=== PATIENT | female | born 2005 | race Caucasian/White ===

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

== ENCOUNTER 2023-01-08 15:14 | Emergency (ER) | payer OTHER ==
[~2023-01-08] VITALS: Ht 162.6 cm; Wt 72.1 kg
[2023-01-08 18:59] LABS: GC DNA AMPLIFICATION NEGATIVE (NEGATIVE)
[2023-01-08 19:30] LABS: BASO # 0.1 10^3/uL (0.0-0.2); BASO % 0.6 % (0.0-1.0); EOS # 0.2 10^3/uL (0.0-0.5); EOS % 1.9 % (0.0-3.0); HEMATOCRIT 40.1 % (36.0-47.0); HEMOGLOBIN 13.1 g/dl (12.0-15.5); LYMPH # 3.2 10^3/uL (1.5-5.0); LYMPH % 40.9 % (24.0-44.0); MEAN CORPUSCULAR HGB CONC 32.7 g/dl (32.0-36.5); MEAN CORPUSCULAR VOLUME 88.9 fl (80.0-96.0); MONO # 0.3 10^3/uL (0.0-0.8); MONO % 4.3 % (2.0-8.0); NEUTROPHILS # 4.1 10^3/uL (1.5-8.5); PLATELET COUNT, AUTOMATED 250 10^3/uL (150-450); RED BLOOD COUNT 4.51 10^6/uL (4.00-5.40); WHITE BLOOD COUNT 7.9 10^3/uL (4.0-10.0)
[2023-01-08 19:51] LABS: LIPASE 36 U/L (12-53)
[2023-01-08 19:53] LABS: ALBUMIN 4.1 G/DL (3.2-5.2); ALKALINE PHOSPHATASE 84 U/L (46-116); ALT/SGPT 64 U/L (7.0-40); AST/SGOT 19 U/L (<34); BILIRUBIN,DIRECT 0.1 MG/DL (<0.4); BILIRUBIN,TOTAL 0.3 MG/DL (0.3-1.2); BLOOD UREA NITROGEN 16 MG/DL (9-23); CALCIUM LEVEL 9.5 MG/DL (8.5-10.1); CARBON DIOXIDE LEVEL 28 MMOL/L (20-31); CHLORIDE LEVEL 105 MMOL/L (98-107); CREATININE FOR GFR 0.59 MG/DL (0.55-1.30); GLUCOSE, FASTING 81 MG/DL (60-100); POTASSIUM SERUM 3.9 MMOL/L (3.5-5.1); SODIUM LEVEL 139 MMOL/L (136-145); TOTAL PROTEIN 7.5 G/DL (5.7-8.2)
[2023-01-08 20:25] VITALS: BP 141/89; TEMP 97.8; O2SAT 99
== END 2023-01-08 20:29 | disposition home or self-care (01) ==
LOC: M ED 15:14
DX: R10.2 Pelvic and perineal pain (principal); N92.6 Irregular menstruation, unspecified

== ENCOUNTER → 2023-03-16 | Outpatient (CLI) | payer OTHER | LOC: M RAD 07:04 | PROVIDERS: ATTEND Orthopaedic Surgery | DX: M67.431 Ganglion, right wrist (principal) ==

== ENCOUNTER 2023-04-23 11:34 | Emergency (ER) | payer OTHER ==
[~2023-04-23] VITALS: Ht 162.6 cm; Wt 74.5 kg
[~2023-04-23 11:34] MED LIST: ONDA4TAB6 PO
[2023-04-23 14:25] LABS: BASO % 0.5 % (0.0-1.0); EOS # 0.1 10^3/uL (0.0-0.5); EOS % 1.7 % (0.0-3.0); HEMATOCRIT 41.9 % (36.0-47.0); LYMPH # 3.2 10^3/uL (1.5-5.0); LYMPH % 42.3 % (24.0-44.0); MEAN CORPUSCULAR HEMOGLOBIN 29.5 pg (27.0-33.0); MEAN CORPUSCULAR HGB CONC 33.4 g/dl (32.0-36.5); MEAN CORPUSCULAR VOLUME 88.2 fl (80.0-96.0); MONO # 0.3 10^3/uL (0.0-0.8); MONO % 3.8 % (2.0-8.0); NEUTROPHILS # 3.9 10^3/uL (1.5-8.5); NEUTROPHILS % 51.4 % (36.0-66.0); PLATELET COUNT, AUTOMATED 259 10^3/uL (150-450); RED BLOOD COUNT 4.75 10^6/uL (4.00-5.40); WHITE BLOOD COUNT 7.7 10^3/uL (4.0-10.0)
[2023-04-23 14:54] LABS: LIPASE 38 U/L (12-53)
[2023-04-23 14:56] LABS: ALBUMIN 4.2 G/DL (3.2-5.2); ALKALINE PHOSPHATASE 81 U/L (46-116); ALT/SGPT 19 U/L (7.0-40); AST/SGOT 15 U/L (<34); BILIRUBIN,DIRECT 0.2 MG/DL (<0.4); BILIRUBIN,TOTAL 0.5 MG/DL (0.3-1.2); BLOOD UREA NITROGEN 10 MG/DL (9-23); CALCIUM LEVEL 9.9 MG/DL (8.5-10.1); CARBON DIOXIDE LEVEL 26 MMOL/L (20-31); CHLORIDE LEVEL 107 MMOL/L (98-107); CREATININE FOR GFR 0.66 MG/DL (0.55-1.30); GLUCOSE, FASTING 74 MG/DL (60-100); POTASSIUM SERUM 3.9 MMOL/L (3.5-5.1); SODIUM LEVEL 141 MMOL/L (136-145); TOTAL PROTEIN 7.6 G/DL (5.7-8.2)
[2023-04-23 15:07] LABS: HCG, SERUM QUALITATIVE NEGATIVE (NEGATIVE)
[2023-04-23 19:13] LABS: CHLAMYDIA DNA AMPLIFICATION NEGATIVE (NEGATIVE); GC DNA AMPLIFICATION NEGATIVE (NEGATIVE)
[2023-04-23] MEDS ORDERED: CIPR-249 PO (19:28)
[2023-04-23 19:34] VITALS: BP 124/72; TEMP 97.8; O2SAT 100
== END 2023-04-23 19:35 | disposition home or self-care (01) ==
LOC: M ED 11:34
DX: N39.0 Urinary tract infection, site not specified (principal); N92.0 Excessive and frequent menstruation with regular cycle; Z79.2 Long term (current) use of antibiotics

== ENCOUNTER 2024-07-07 12:34 | Emergency (ER) | payer OTHER ==
[~2024-07-07] VITALS: Ht 162.6 cm; Wt 80.5 kg
[~2024-07-07 12:34] MED LIST changes: +CIPR-249 PO; +ONDA-282 PO; -ONDA4TAB6 PO
[2024-07-07 14:07] LABS: BASO # 0.1 10^3/uL (0.0-0.2); BASO % 0.5 % (0.0-1.0); EOS # 0.1 10^3/uL (0.0-0.5); EOS % 1.4 % (0.0-3.0); HEMATOCRIT 40.9 % (36.0-47.0); HEMOGLOBIN 13.4 g/dl (12.0-15.5); LYMPH # 3.6 10^3/uL (1.5-5.0); MEAN CORPUSCULAR HEMOGLOBIN 27.8 pg (27.0-33.0); MEAN CORPUSCULAR HGB CONC 32.8 g/dl (32.0-36.5); MEAN CORPUSCULAR VOLUME 84.9 fl (80.0-96.0); MONO # 0.6 10^3/uL (0.0-0.8); MONO % 5.8 % (2.0-8.0); NEUTROPHILS # 5.3 10^3/uL (1.5-8.5); NEUTROPHILS % 55.1 % (36.0-66.0); PLATELET COUNT, AUTOMATED 307 10^3/uL (150-450); RED BLOOD COUNT 4.82 10^6/uL (4.00-5.40); WHITE BLOOD COUNT 9.7 10^3/uL (4.0-10.0)
[2024-07-07 14:28] LABS: BLOOD UREA NITROGEN 14 MG/DL (9-23); CALCIUM LEVEL 9.7 MG/DL (8.5-10.1); CARBON DIOXIDE LEVEL 25 MMOL/L (20-31); CHLORIDE LEVEL 104 MMOL/L (98-107); CREATININE FOR GFR 0.62 MG/DL (0.55-1.30); GLOMERULAR FILTRATION RATE > 60.0 (>60); GLUCOSE, FASTING 80 MG/DL (60-100); HCG, SERUM QUALITATIVE NEGATIVE (NEGATIVE); POTASSIUM SERUM 4.6 MMOL/L (3.5-5.1); SODIUM LEVEL 139 MMOL/L (136-145)
[2024-07-07 14:31] LABS: FREE T4 1.15 NG/DL (0.83-1.43)
[2024-07-07] MEDS: ACETAMINOPHEN 500 MG TAB PO ONE (17:05)
[2024-07-07 17:40] VITALS: BP 124/80; TEMP 97.6; O2SAT 100
== END 2024-07-07 17:44 | disposition home or self-care (01) ==
LOC: M ED 12:34
DX: J02.9 Acute pharyngitis, unspecified (principal); R94.6 Abnormal results of thyroid function studies; E03.9 Hypothyroidism, unspecified

== ENCOUNTER 2024-07-11 15:16 | Emergency (ER) | payer OTHER ==
[~2024-07-11] VITALS: Ht 162.6 cm; Wt 81.1 kg
[2024-07-11 17:08] LABS: BASO % 0.5 % (0.0-1.0); EOS # 0.2 10^3/uL (0.0-0.5); EOS % 1.8 % (0.0-3.0); HEMATOCRIT 38.6 % (36.0-47.0); HEMOGLOBIN 12.9 g/dl (12.0-15.5); LYMPH # 3.4 10^3/uL (1.5-5.0); LYMPH % 39.6 % (24.0-44.0); MEAN CORPUSCULAR HEMOGLOBIN 28.6 pg (27.0-33.0); MEAN CORPUSCULAR HGB CONC 33.4 g/dl (32.0-36.5); MEAN CORPUSCULAR VOLUME 85.6 fl (80.0-96.0); MONO # 0.5 10^3/uL (0.0-0.8); MONO % 6.3 % (2.0-8.0); NEUTROPHILS # 4.4 10^3/uL (1.5-8.5); NEUTROPHILS % 51.6 % (36.0-66.0); PLATELET COUNT, AUTOMATED 297 10^3/uL (150-450); RED BLOOD COUNT 4.51 10^6/uL (4.00-5.40); WHITE BLOOD COUNT 8.5 10^3/uL (4.0-10.0)
[2024-07-11 17:19] LABS: ALBUMIN 3.8 G/DL (3.2-5.2); ALKALINE PHOSPHATASE 82 U/L (35-104); ALT/SGPT 17 U/L (7.0-40); AST/SGOT 12 U/L (<34); BILIRUBIN,DIRECT < 0.1 MG/DL (<0.4); BILIRUBIN,TOTAL 0.3 MG/DL (0.3-1.2); BLOOD UREA NITROGEN 15 MG/DL (9-23); CALCIUM LEVEL 9.4 MG/DL (8.5-10.1); CARBON DIOXIDE LEVEL 27 MMOL/L (20-31); CHLORIDE LEVEL 107 MMOL/L (98-107); CREATININE FOR GFR 0.67 MG/DL (0.55-1.30); GLOMERULAR FILTRATION RATE > 90.0 (>60); GLUCOSE, FASTING 75 MG/DL (60-100); HCG, SERUM QUALITATIVE NEGATIVE (NEGATIVE); SODIUM LEVEL 141 MMOL/L (136-145); TOTAL PROTEIN 7.3 G/DL (5.7-8.2)
[2024-07-11 17:20] LABS: THYROID STIMULATING HORMONE 7.702 uIU/ML (0.48-4.17)
[2024-07-11 17:21] LABS: FREE T4 1.02 NG/DL (0.83-1.43)
[2024-07-11] MEDS ORDERED: ISOVUE-370 76% 100ML VIAL As Ordered ONE (17:30)
[2024-07-11 19:08] VITALS: BP 116/77; TEMP 98.2; O2SAT 100
== END 2024-07-11 19:15 | disposition home or self-care (01) ==
LOC: M ED 15:16
DX: M54.2 Cervicalgia (principal); X58.XXXA Exposure to other specified factors, initial encounter; E03.9 Hypothyroidism, unspecified; J98.09 Other diseases of bronchus, not elsewhere classified; Y99.9 Unspecified external cause status
CPT/HCPCS: 36415; 70491; 71046; 80048; 80076; 84439; 84443; 84703; 85025; 93005; 93041; 99285; Q9967

== ENCOUNTER 2024-10-07 07:32 | Emergency (ER) | payer OTHER ==
[~2024-10-07] VITALS: Ht 162.6 cm; Wt 82.3 kg
[~2024-10-07 07:32] MED LIST changes: +ACET-897 PO; +IBUP-1022 PO; +LIDO1ADH93 TD; +NAPR-837 PO; +SYNT75TA
[2024-10-07] MEDS ORDERED: SYNT100T (07:49)
[2024-10-07 13:24] VITALS: BP 125/89; TEMP 97.2; O2SAT 100
[2024-10-07] MEDS ORDERED: CYCL-707 PO (13:31)
[2024-10-07] MEDS ORDERED: LIDO1ADH93 TOP (13:31)
== END 2024-10-07 13:36 | disposition home or self-care (01) ==
LOC: M ED 07:32
DX: M54.50 Low back pain, unspecified (principal); E03.9 Hypothyroidism, unspecified; Y92.89 Other specified places as the place of occurrence of the external cause; Y93.B3 Activity, free weights; Y99.9 Unspecified external cause status; Z79.1 Long term (current) use of non-steroidal anti-inflammatories (NSAID); Z79.899 Other long term (current) drug therapy

== ENCOUNTER 2024-11-10 04:16 | Emergency (ER) | payer OTHER ==
[~2024-11-10] VITALS: Ht 162.6 cm; Wt 85.2 kg
[~2024-11-10 04:16] MED LIST changes: +CYCL-707 PO; +LIDO1ADH93 TOP; +SYNT100T
[2024-11-10 04:17] VITALS: TEMP 97.4
[2024-11-10] MEDS ORDERED: LIDO1ADH93 TD (06:22)
[2024-11-10] MEDS: LIDOCAINE 5% PATCH TD ONE (06:25)
[2024-11-10] MEDS: CYCLOBENZAPRINE 10 MG TABLET PO ONE (06:25)
[2024-11-10] MEDS: KETOROLAC 60 MG/2 ML VIAL IM ONE (06:29)
[2024-11-10 06:36] VITALS: BP 120/88; O2SAT 98
== END 2024-11-10 06:38 | disposition home or self-care (01) ==
LOC: M ED 04:16
DX: S39.012A Strain of muscle, fascia and tendon of lower back, initial encounter (principal); X58.XXXA Exposure to other specified factors, initial encounter; E03.9 Hypothyroidism, unspecified; Z79.1 Long term (current) use of non-steroidal anti-inflammatories (NSAID); Z79.899 Other long term (current) drug therapy; Y92.9 Unspecified place or not applicable; Y93.89 Activity, other specified; Y99.9 Unspecified external cause status
CPT/HCPCS: 72110; 96372; 99283; J1885

== ENCOUNTER 2024-12-15 07:03 | Emergency (ER) | payer OTHER ==
[~2024-12-15] VITALS: Ht 162.6 cm; Wt 83.6 kg
[~2024-12-15 07:03] MED LIST changes: -IBUP-1022 PO; +IBUP600T42 PO
[2024-12-15] MEDS ORDERED: SYNT125T (07:13)
[2024-12-15] MEDS: KETOROLAC 60 MG/2 ML VIAL IM ONE (07:57)
[2024-12-15] MEDS: ACETAMINOPHEN 325 MG TAB PO ONE (07:57)
[2024-12-15] MEDS ORDERED: MEDR4PAK PO (08:08)
[2024-12-15 08:11] VITALS: BP 114/68; TEMP 97.7; O2SAT 98
== END 2024-12-15 08:24 | disposition home or self-care (01) ==
LOC: M ED 07:03
DX: M54.41 Lumbago with sciatica, right side (principal); E03.9 Hypothyroidism, unspecified; Z91.048 Other nonmedicinal substance allergy status; Z79.899 Other long term (current) drug therapy
CPT/HCPCS: 96372; 99283; J1885

== ENCOUNTER 2025-02-04 14:18 | Emergency (ER) | payer OTHER ==
[~2025-02-04] VITALS: Ht 167.6 cm; Wt 81.6 kg
[~2025-02-04 14:18] MED LIST changes: +MEDR4PAK PO; +SYNT125T
[2025-02-04] MEDS: ONDANSETRON 4MG ORAL DISINTEGRATING TAB PO ONE (15:11)
[2025-02-04 15:30] LABS: BASO # 0.0 10^3/uL (0.0-0.2); BASO % 0.5 % (0.0-1.0); EOS # 0.2 10^3/uL (0.0-0.5); EOS % 2.2 % (0.0-3.0); LYMPH # 3.1 10^3/uL (1.5-5.0); LYMPH % 36.2 % (24.0-44.0); MONO # 0.5 10^3/uL (0.0-0.8); MONO % 5.6 % (2.0-8.0); NEUTROPHILS # 4.8 10^3/uL (1.5-8.5); NEUTROPHILS % 55.4 % (36.0-66.0); PLATELET COUNT, AUTOMATED 251 10^3/uL (150-450)
[2025-02-04 15:51] LABS: KETONE, URINE AUTO RFX NEGATIVE (NEGATIVE); MUCUS, URINE RFX SMALL (NEGATIVE); NITRITE, URINE AUTO RFX NEGATIVE (NEGATIVE); RBC, URINE AUTO RFX 3 /HPF (0-3); SQUAM EPITHELIAL CELL UR AURFX 14 /HPF (0-6); WBC, URINE AUTO RFX 3 /HPF (0-3)
[2025-02-04 15:52] LABS: LEUKOCYTE ESTERASE UR AUTO RFX 2+ (NEGATIVE)
[2025-02-04] MEDS: ACETAMINOPHEN 325 MG TAB PO ONE (15:56)
[2025-02-04 16:01] LABS: ALT/SGPT 14 U/L (7.0-40); AST/SGOT 18 U/L (<34); CALCIUM LEVEL 9.6 MG/DL (8.5-10.1); CARBON DIOXIDE LEVEL 24 MMOL/L (20-31); CHLORIDE LEVEL 110 MMOL/L (98-107); CREATININE FOR GFR 0.76 MG/DL (0.55-1.30); GLOMERULAR FILTRATION RATE > 90.0 (>60); POTASSIUM SERUM 4.5 MMOL/L (3.5-5.1); SODIUM LEVEL 142 MMOL/L (136-145)
[2025-02-04 16:07] LABS: THYROXINE (T4) 7.5 UG/DL (4.5-10.9)
[2025-02-04 16:09] LABS: HCG, SERUM QUALITATIVE NEGATIVE (NEGATIVE)
[2025-02-04 16:10] LABS: T UPTAKE 31.1 % (22.5-37.0)
[2025-02-04] MEDS ORDERED: ONDA-83 PO (16:14)
[2025-02-04 16:19] VITALS: BP 121/82; TEMP 98.8; O2SAT 98
== END 2025-02-04 16:23 | disposition home or self-care (01) ==
LOC: M ED 14:18
DX: R11.0 Nausea (principal); Z91.048 Other nonmedicinal substance allergy status; Z79.899 Other long term (current) drug therapy

== ENCOUNTER 2025-02-18 13:25 | Emergency (ER) | payer OTHER ==
[~2025-02-18] VITALS: Ht 162.6 cm; Wt 82.0 kg
[~2025-02-18 13:25] MED LIST changes: +ONDA-83 PO
[2025-02-18 14:00] LABS: BASO # 0.0 10^3/uL (0.0-0.2); BASO % 0.6 % (0.0-1.0); EOS # 0.1 10^3/uL (0.0-0.5); EOS % 1.4 % (0.0-3.0); LYMPH # 2.6 10^3/uL (1.5-5.0); LYMPH % 40.5 % (24.0-44.0); MONO # 0.3 10^3/uL (0.0-0.8); MONO % 4.4 % (2.0-8.0); NEUTROPHILS # 3.4 10^3/uL (1.5-8.5); NEUTROPHILS % 52.9 % (36.0-66.0); PLATELET COUNT, AUTOMATED 330 10^3/uL (150-450)
[2025-02-18 14:23] LABS: CK-MB VALUE MASS < 1.0 NG/ML (<3.6)
[2025-02-18 14:29] LABS: CALCIUM LEVEL 9.8 MG/DL (8.5-10.1); CARBON DIOXIDE LEVEL 25 MMOL/L (20-31); CHLORIDE LEVEL 104 MMOL/L (98-107); CREATININE FOR GFR 0.87 MG/DL (0.55-1.30); GLOMERULAR FILTRATION RATE > 90.0 (>60); POTASSIUM SERUM 3.8 MMOL/L (3.5-5.1); SODIUM LEVEL 140 MMOL/L (136-145)
[2025-02-18 14:34] LABS: T UPTAKE 25.8 % (22.5-37.0)
[2025-02-18 14:35] LABS: THYROXINE (T4) 8.9 UG/DL (4.5-10.9)
[2025-02-18 14:39] LABS: CPK CREATINE PHOSPHOKINASE 124 U/L (34-145); HCG, SERUM QUALITATIVE NEGATIVE (NEGATIVE)
[2025-02-18] MEDS ORDERED: ISOVUE-370 76% 100 ML VIAL As Ordered ONE (14:43)
[2025-02-18 15:39] LABS: CK-MB VALUE MASS < 1.0 NG/ML (<3.6); CPK CREATINE PHOSPHOKINASE 103 U/L (34-145)
[2025-02-18] MEDS: KETOROLAC 30 MG/ML 1 ML VIAL IV ONE (15:47)
[2025-02-18 16:26] LABS: AMPHETAMINES LEVEL URINE NEGATIVE (NEGATIVE); BARBITURATES URINE NEGATIVE (NEGATIVE); BENZODIAZEPINES URINE NEGATIVE (NEGATIVE)
[2025-02-18 16:27] LABS: CANNABINOIDS URINE NEGATIVE (NEGATIVE); COCAINE METABOLITE URINE NEGATIVE (NEGATIVE); METHADONE URINE NEGATIVE (NEGATIVE); OPIATES URINE NEGATIVE (NEGATIVE); PHENCYCLIDINE URINE NEGATIVE (NEGATIVE)
[2025-02-18 18:55] VITALS: BP 138/83; TEMP 98.1; O2SAT 98
== END 2025-02-18 18:57 | disposition home or self-care (01) ==
LOC: M ED 13:25
DX: R03.0 Elevated blood-pressure reading, without diagnosis of hypertension (principal); R94.31 Abnormal electrocardiogram [ECG] [EKG]; E03.9 Hypothyroidism, unspecified; R00.0 Tachycardia, unspecified; Z91.09 Other allergy status, other than to drugs and biological substances; Z79.899 Other long term (current) drug therapy
CPT/HCPCS: 71045; 71275; 80048; 80307; 82550; 82553; 84436; 84443; 84479; 84484; 84703; 85025; 85652; 87486; 87581; 87633; 87798; 93005; 93041; 94760; 96374; 99285; J1885; Q9967

== ENCOUNTER 2025-02-23 12:59 | Emergency (ER) | payer OTHER ==
[~2025-02-23] VITALS: Ht 162.6 cm; Wt 81.8 kg
[2025-02-23] MEDS ORDERED: SYNT150T PO (13:15)
[2025-02-23] MEDS ORDERED: LEXA1TAB PO (13:15)
[2025-02-23 13:27] LABS: BASO # 0.0 10^3/uL (0.0-0.2); BASO % 0.5 % (0.0-1.0); EOS # 0.1 10^3/uL (0.0-0.5); EOS % 1.2 % (0.0-3.0); LYMPH # 2.2 10^3/uL (1.5-5.0); LYMPH % 33.7 % (24.0-44.0); MONO # 0.3 10^3/uL (0.0-0.8); MONO % 4.5 % (2.0-8.0); NEUTROPHILS # 4.0 10^3/uL (1.5-8.5); NEUTROPHILS % 59.8 % (36.0-66.0); PLATELET COUNT, AUTOMATED 287 10^3/uL (150-450)
[2025-02-23 13:58] LABS: CK-MB VALUE MASS < 1.0 NG/ML (<3.6)
[2025-02-23 14:00] LABS: ALT/SGPT 20 U/L (7.0-40); AST/SGOT 24 U/L (<34); CALCIUM LEVEL 9.2 MG/DL (8.5-10.1); CARBON DIOXIDE LEVEL 26 MMOL/L (20-31); CHLORIDE LEVEL 105 MMOL/L (98-107); CPK CREATINE PHOSPHOKINASE 243 U/L (34-145); CREATININE FOR GFR 0.63 MG/DL (0.55-1.30); GLOMERULAR FILTRATION RATE > 90.0 (>60); POTASSIUM SERUM 3.8 MMOL/L (3.5-5.1); SODIUM LEVEL 141 MMOL/L (136-145)
[2025-02-23 14:01] LABS: HCG, SERUM QUALITATIVE NEGATIVE (NEGATIVE)
[2025-02-23 15:01] LABS: CK-MB VALUE MASS < 1.0 NG/ML (<3.6)
[2025-02-23 15:05] LABS: FREE T4 1.25 NG/DL (0.89-1.76)
[2025-02-23 15:22] LABS: CPK CREATINE PHOSPHOKINASE 243 U/L (34-145)
[2025-02-23] MEDS ORDERED: ISOVUE-370 76% 100 ML VIAL As Ordered ONE (15:24)
[2025-02-23] MEDS: NS (Normal Saline) 0.9% 1,000 ML IV ONE (15:43)
[2025-02-23] MEDS ORDERED: HOME MED LIST COMPLETE! XX SCH (16:35)
[2025-02-23 22:45] VITALS: BP 134/72; O2SAT 98
[2025-02-23] MEDS ORDERED: HOLTER MONITOR XX (23:05)
[2025-02-23 23:23] LABS: MAGNESIUM LEVEL 1.8 MG/DL (1.8-2.4)
[2025-02-23 23:38] VITALS: TEMP 98
== END 2025-02-23 23:44 | disposition home or self-care (01) ==
LOC: M ED 12:59
DX: R55 Syncope and collapse (principal); Z79.899 Other long term (current) drug therapy
CPT/HCPCS: 36415; 70450; 71275; 80048; 80076; 82550; 82553; 83735; 84439; 84443; 84484; 84703; 85025; 93005; 93041; 93306; 94760; 99285; Q9967

== ENCOUNTER → 2025-02-24 | Outpatient (CLI) | payer OTHER ==
[~2025-02-24] MED LIST changes: +HOLTER MONITOR XX; +LEXA1TAB PO; +SYNT150T PO
== END ==
LOC: M EKG 10:47
PROVIDERS: ATTEND Physician Assistant Medical
DX: R00.2 Palpitations (principal)